=== PATIENT | female | born 1975 | race Caucasian/White ===

== ENCOUNTER 2020-11-23 10:39 | Inpatient (IN) ==
[2020-11-23] MEDS ORDERED: ANCEF VIAL 1 GRAM IVP ONE (10:54)
[2020-11-23] MEDS ORDERED: ANCEF 1 GRAM IV PREMIX* 1 G/50 ML BAG IV ONE (10:56)
[2020-11-23] MEDS ORDERED: D5 NS 1000 ML 1,000 ML IV ONE (10:56)
[2020-11-23] MEDS ORDERED: BRIDION ONE (11:36)
[2020-11-23] MEDS ORDERED: DILAUDID INJ ONE (11:36)
[2020-11-23] MEDS ORDERED: OFIRMEV IV 1000 MG VIAL 1,000 MG/100 ML VIAL IV ONE (11:36)
[2020-11-23] MEDS ORDERED: ZEMURON 50 MG VIAL ONE (11:36)
[2020-11-23] MEDS ORDERED: FENTANYL INJ 250 mcg ONE (11:36)
[2020-11-23] MEDS ORDERED: PEPCID 20 MG IV PREMIX* 20 MG/50 ML BAG IV ONE (11:53)
[2020-11-23] MEDS ORDERED: DECADRON INJ ONE (11:54)
[2020-11-23] MEDS ORDERED: LR 1000 ML IV 1,000 ML IV ONE (12:31)
[2020-11-23] MEDS ORDERED: DIPRIVAN VIAL ONE (12:49)
[2020-11-23] MEDS ORDERED: VERSED ONE (12:49)
[2020-11-23] MEDS ORDERED: XYLOCAINE 2 % (PLAIN) ONE (12:49)
[2020-11-23] MEDS ORDERED: LTA KIT LIDOCAINE 4% ONE (12:49)
[2020-11-23] MEDS ORDERED: ZOFRAN INJ 4 MG VIAL ONE (12:49)
[2020-11-23] MEDS ORDERED: TORADOL 30 MG VIAL ONE (12:49)
[2020-11-23] MEDS ORDERED: SUPRANE ONE ×2 (12:49→14:13)
[2020-11-23] MEDS ORDERED: NS 1000 ML 1,000 ML ONE (14:39)
[2020-11-23] MEDS ORDERED: REGLAN INJ 10 MG VIAL IVP PRN (15:04)
[2020-11-23] MEDS ORDERED: BENADRYL INJ 50 MG VIAL IVP PRN ×2 (15:04→15:34)
[2020-11-23] MEDS ORDERED: PHENERGAN INJ 25 MG IM PRN (15:04)
[2020-11-23] MEDS ORDERED: ZOFRAN INJ 4 MG VIAL IVP PRN (15:04)
[2020-11-23] MEDS: DILAUDID INJ IVP PRN ×2 (15:18→15:29)
[2020-11-23] MEDS ORDERED: MORPHINE SULFATE PCA 30 MG IVP PRN (15:34)
[2020-11-23] MEDS: D5 1/2 NS 1000 ML 1,000 ML IV SCH ×4 (16:21→19:53)
[2020-11-23] MEDS: TORADOL 30 MG VIAL IVP PRN (19:58)
[2020-11-23] MEDS: ZOFRAN INJ 4 MG VIAL IVP PRN (19:58)
[2020-11-24] MEDS: D5 1/2 NS 1000 ML 1,000 ML IV SCH ×7 (00:47→19:44)
[2020-11-24] MEDS: TORADOL 30 MG VIAL IVP PRN (02:32)
[2020-11-24 05:51] LABS: BASOPHILS % (AUTO) 0.1 % (0.2-1.0); HEMATOCRIT 24.4 % (36.0-47.0); HEMOGLOBIN 7.6 g/dL (12.0-16.0); LYMPHOCYTES # (AUTO) 1.1 X10^3/uL (1.3-2.9); LYMPHOCYTES % (AUTO) 8.3 % (21.0-51.0); MEAN CORPUSCULAR HEMOGLOBIN 22.4 pg (27.0-34.0); MEAN CORPUSCULAR HGB CONC 31.3 g/dL (33.0-35.0); MEAN CORPUSCULAR VOLUME 71.7 fL (80.0-100.0); MEAN PLATELET VOLUME 9.2 fL (7.4-11.0); MONOCYTES # (AUTO) 0.6 x10^3/uL (0.3-0.8); MONOCYTES % (AUTO) 4.5 % (0.0-13.0); NEUTROPHILS # (AUTO) 12.1 x10^3/uL (2.2-4.8); NEUTROPHILS % (AUTO) 87.1 % (42.0-75.0); PLATELET COUNT 254 X10^3/uL (150.0-450.0); RED BLOOD COUNT 3.41 X10^6/uL (3.5-5.4); RED CELL DISTRIBUTION WIDTH 16.1 % (11.6-16.5); WHITE BLOOD COUNT 13.9 X10^3/uL (3.6-10.0)
[2020-11-24 05:56] LABS: BLOOD UREA NITROGEN 6 mg/dL (7-18); CALCIUM 8.1 mg/dL (8.5-10.1); CARBON DIOXIDE 26.5 mmol/L (21-32); CHLORIDE 102 mmol/L (98-107); COR NA(FOR HYPERGLY) 136 mmol/L (136-145); CREATININE 0.61 mg/dL (0.55-1.02); SODIUM 135 mmol/L (136-145); eGFR NON BLACK RACES > 60 (>60)
[2020-11-24 05:58] LABS: HYPOCHROMASIA SLIGHT; MICROCYTOSIS SLIGHT; PLATELET MORPHOLOGY COMMENT NORMAL (NORMAL)
[2020-11-24] MEDS ORDERED: MOTRIN TAB 800 MG PO PRN (06:02)
[2020-11-24] MEDS: FERROUS GLUCONATE PO SCH ×2 (07:55→18:20)
[2020-11-24] MEDS: ESTRACE PO SCH (11:03)
[2020-11-24] MEDS: COLACE CAP 100 MG PO SCH ×2 (11:04→21:19)
[2020-11-24] MEDS: PERCOCET TAB 5/325 MG PO PRN ×3 (11:30→21:18)
[2020-11-24] MEDS: ZOFRAN INJ 4 MG VIAL IVP PRN (11:30)
[2020-11-24] MEDS: BACTROBAN TOPICAL OINT TOP SCH ×2 (14:42→21:19)
[2020-11-24] MEDS: MILK OF MAGNESIA PO SCH (21:18)
[2020-11-25] MEDS: D5 1/2 NS 1000 ML 1,000 ML IV SCH ×3 (00:10→08:22)
[2020-11-25] MEDS: BACTROBAN TOPICAL OINT TOP SCH (05:49)
[2020-11-25] MEDS: FERROUS GLUCONATE PO SCH (08:00)
[2020-11-25] MEDS: MILK OF MAGNESIA PO SCH (08:20)
[2020-11-25] MEDS: ESTRACE PO SCH (08:20)
[2020-11-25] MEDS: PERCOCET TAB 5/325 MG PO PRN (08:20)
[2020-11-25] MEDS: COLACE CAP 100 MG PO SCH (08:21)
[2020-11-25 09:49] VITALS: BP 140/73
== END 2020-11-25 11:30 | disposition home or self-care (01) | DRG 743 ==
LOC: EDBD → MED/SURG 10:39
PROVIDERS: ADMIT Specialist; ATTEND Specialist
DX: R10.2 Pelvic and perineal pain; D25.2 Subserosal leiomyoma of uterus; N94.4 Primary dysmenorrhea; N92.0 Excessive and frequent menstruation with regular cycle